=== PATIENT | male | born 1940 | race American Indian/Alaskan Native ===

== ENCOUNTER 2017-09-21 18:34 | Emergency (ER) | payer MEDICARE, MEDICAID ==
[~2017-09-21] VITALS: Ht 167.6 cm; Wt 66.8 kg
[~2017-09-21 18:34] MED LIST: AMIO200T57 PO; ASPI-1265 PO; ATOR10TA PO; CARV12.5 PO; CLOP75TA35 PO; FURO-150 PO; LISI-222 PO; POTA20TA19 PO
[2017-09-21 18:49] VITALS: BP 115/61
[2017-09-21] MEDS ORDERED: ALBU8.5H8 INH (21:24)
== END 2017-09-21 21:19 | disposition home or self-care (01) ==
LOC: ER 18:37
DX: R06.02 Shortness of breath (principal); R06.00 Dyspnea, unspecified; I48.91 Unspecified atrial fibrillation; I11.0 Hypertensive heart disease with heart failure; I50.9 Heart failure, unspecified; G89.29 Other chronic pain; F12.90 Cannabis use, unspecified, uncomplicated; Z76.0 Encounter for issue of repeat prescription; Z88.8 Allergy status to other drugs, medicaments and biological substances; Z91.018 Allergy to other foods; Z79.82 Long term (current) use of aspirin; Z79.899 Other long term (current) drug therapy
CPT/HCPCS: 99284

== ENCOUNTER 2018-04-29 06:22 | Day surgery (SDC) | payer MEDICARE, MEDICAID ==
[2018-04-22 16:35] LABS: CLARITY,URINE CLEAR (Clear); COLOR,URINE STRAW (Yellow); GLUCOSE, URINE NEGATIVE (Neg); KETONES,URINE NEGATIVE (Neg); LEUKOCYTE ESTERASE ,URINE TRACE (Neg); NITRITES, URINE NEGATIVE (Neg); OCCULT BLOOD,URINE NEGATIVE (Neg); PROTEIN,URINE NEGATIVE (Neg); UROBILINOGEN,URINE 0.2 E.U/dL (0.2-1.0)
[2018-04-22 16:41] LABS: BASOPHILS % (AUTO) 0.2 % (0-1); EOSINOPHILS # (AUTO) 0.2 X10'3 (0-0.9); EOSINOPHILS % (AUTO) 2.1 % (0-6); LYMPHOCYTES # (AUTO) 1.8 X10'3 (1.1-4.8); LYMPHOCYTES % (AUTO) 24.7 % (21-51); MEAN CORPUSCULAR HEMOGLOBIN 31.2 PG (27.0-31.0); MEAN CORPUSCULAR HGB CONC 33.3 g/dL (33.0-36.5); MEAN CORPUSCULAR VOLUME 93.9 FL (78-98); MEAN PLATELET VOLUME 8.8 FL (7.4-10.4); MONOCYTES # (AUTO) 0.6 X10'3 (0-0.9); MONOCYTES % (AUTO) 9.1 % (2-12); NEUTROPHILS # (AUTO) 4.5 X10'3 (1.8-7.7); NEUTROPHILS % (AUTO) 63.9 % (42-75); PRE OP HEMATOCRIT 44.4 % (42.0-52.0); PRE OP HEMOGLOBIN 14.8 g/dL (14.0-17.9); PRE OP PLATELET COUNT 147 X10'3 (140-440); RED BLOOD COUNT 4.73 X10'6 (4.70-6.10); RED CELL DISTRIBUTION WIDTH 14.7 % (11.5-14.5)
[2018-04-22 16:41] LABS: UA COLLECTION TYPE CLN CATCH MIDSTREAM
[2018-04-22 16:42] LABS: BACTERIA,URINE 1+ /HPF (Neg); MUCUS STRANDS FEW /LPF (Neg); RBC,URINE 0-2 /HPF (0-2); SQUAMOUS EPITHELIAL CELL,UR FEW /LPF (FEW); WBC,URINE 0-4 /HPF (0-4)
[2018-04-22 17:00] LABS: ALBUMIN/GLOBULIN RATIO 1.2 (1.1-1.5); ALKALINE PHOSPHATASE 44 IU/L (46-116); BLOOD UREA NITROGEN 25 MG/DL (7-18); BUN/CREATININE RATIO 18.7 (5.4-32.0); CALCIUM 9.6 MG/DL (8.5-10.1); CHLORIDE 104 MMOL/L (99-107); CREATININE 1.34 MG/DL (0.60-1.10); PRE OP ALT 21 U/L (30-65); PRE OP ANION GAP 9 (8-16); PRE OP AST 16 U/L (10-37); PRE OP GLUCOSE 93 MG/DL (70-104); PRE OP POTASSIUM 4.1 MMOL/L (3.4-5.1); PRE OP SODIUM 140 MMOL/L (135-145); TOTAL CARBON DIOXIDE 26.8 MMOL/L (24-32); TOTAL PROTEIN 7.4 G/DL (6.4-8.2); eGFR 52 ML/MIN
[2018-04-29] VITALS (16 sets, daily range): BP systolic 106–133; BP diastolic 60–87
[~2018-04-29] VITALS: Ht 170.2 cm; Wt 67.7 kg
[~2018-04-29 06:22] MED LIST changes: +ACET-812 PO; +ALOE JUICE PO; -AMIO200T57 PO; -ASPI-1265 PO; -ATOR10TA PO; +ATOR40TA PO; -CLOP75TA35 PO; +COU4T PO; +CYANOCOBALAMIN PO; +DOCUMENT DATE & TIME OF BETA-BLOCKER PO ONE; +IRON PO; +METHYLSULFONYLMETHANE PO; +[UNRECOGNIZED DRUG - OTHER] PO; +[UNRECOGNIZED DRUG - REMARK] PO; +cefazolin/dext.iso 2gm/50ml 50 ML IV ONE; +famotidine 20mg tablet PO ONE; +ringers solution, lacted 1,000 ML IV SCH
[2018-04-29] MEDS ORDERED: LORazepam 2 mg/ml vial ONE (06:47)
[2018-04-29] MEDS ORDERED: ceFAZolin 1000mg inj ONE (07:22)
[2018-04-29] MEDS ORDERED: BUPIVAcaine/PF 2.5mg/ml (0.25%) 10ml vial ONE (07:22)
[2018-04-29] MEDS ORDERED: LIDOcaine 1%/PF 5ML 10 MG/ML VIAL ONE (08:06)
[2018-04-29] MEDS ORDERED: sevoflurane 250ml liquid IH ONE (08:06)
[2018-04-29] MEDS ORDERED: fentaNYL/PF 50MCG/1 ML 2ML syringe ONE (08:11)
[2018-04-29] MEDS ORDERED: propofol inj 20 ML IV ONE (08:12)
[2018-04-29] MEDS ORDERED: rocuronium 10mg/ml inj IV ONE (08:12)
[2018-04-29 08:31] LABS: INR 1.3 INR; PRE OP PARTIAL THROMB. TIME 33 SECONDS (22-32); PROTHROMBIN TIME 13.3 SECONDS (9.0-12.0)
[2018-04-29] MEDS ORDERED: glycopyrrolate 0.2mg/ml inj ONE (08:44)
[2018-04-29] MEDS ORDERED: ringers solution, lacted 1,000 ML IV SCH (08:44)
[2018-04-29] MEDS ORDERED: neostigmine methylsulfate 1 MG/ML 10ml vial ONE (08:44)
[2018-04-29] MEDS ORDERED: meperidine/PF 25mg/ml syringe IV PRN ×3 (08:45)
[2018-04-29] MEDS ORDERED: ondansetron/PF 4mg/2ml inj IV PRN (08:45)
[2018-04-29] MEDS ORDERED: morphine 4 MG/ML inj SYRINge IV PRN ×2 (08:45)
[2018-04-29] MEDS ORDERED: proCHLORperazine 10 MG/2 ml inj IV PRN (08:45)
--- NOTE | 2018-04-29 08:56 | NUR ---
Received from OR via , accompanied by Anesthesiologist Dr. Evans and report given by Anesthesiolgist. Patient resting with eyes closes, vss as charted, 02 sat 100% on 10l mask, lung sounds clear, lap sites x3, abd soft to touch bandaides cdi, scd's in place, 20 gauge iv to left FA, IVF infusing, will contiune to monitor.
[2018-04-29] MEDS ORDERED: HYDROcodone/acetaminophen 5mg/325mg tablet PO ONE (09:40)
--- NOTE | 2018-04-29 11:55 | NUR ---
PATIENT DC CRITERIA MET. DISCHARGE INSTRUCTIONS GIVEN, PATIENT VERBALIZED UNDERSTANDING. PIV DC'D CATH TIP INTACT. PATIENT TO PERSONAL VEHCILE WITH ALL PERSONAL BELONGINGS ACCOMPANIED BY STAFF AND FAMILY.
== END 2018-04-29 11:58 | disposition home or self-care (01) ==
LOC: PAS 06:22
PROVIDERS: ATTEND Surgery
DX: K40.90 Unilateral inguinal hernia, without obstruction or gangrene, not specified as recurrent (principal); Z79.899 Other long term (current) drug therapy; Z72.89 Other problems related to lifestyle; Z98.890 Other specified postprocedural states; Z88.1 Allergy status to other antibiotic agents; Z88.8 Allergy status to other drugs, medicaments and biological substances; Z79.01 Long term (current) use of anticoagulants
CPT/HCPCS: 36415; 49650; 71046; 80053; 81001; 82948; 85025; 85610; 85730; 87077; 87088; 87186; 93005; A6258; C1781; J0690; J2001; J2060; J2175; J2405; J2704; J2710; J3010; J3490; A4315; C1727; J7120

== ENCOUNTER 2018-06-10 12:38 | Outpatient (CLI) | payer MEDICARE, MEDICAID ==
[~2018-06-10] VITALS: Ht 170.2 cm; Wt 64.9 kg
[~2018-06-10 12:38] MED LIST changes: -DOCUMENT DATE & TIME OF BETA-BLOCKER PO ONE; -cefazolin/dext.iso 2gm/50ml 50 ML IV ONE; -famotidine 20mg tablet PO ONE; -ringers solution, lacted 1,000 ML IV SCH
[2018-06-10] MEDS ORDERED: albuterol 2.5 MG/3 ML nebule NEB PRN (13:40)
== END 2018-06-10 23:59 | disposition home or self-care (01) ==
LOC: RT 12:38
PROVIDERS: ATTEND Specialist
DX: R94.2 Abnormal results of pulmonary function studies (principal); R06.02 Shortness of breath; F17.210 Nicotine dependence, cigarettes, uncomplicated; I11.0 Hypertensive heart disease with heart failure; I50.9 Heart failure, unspecified; Z79.01 Long term (current) use of anticoagulants; Z79.899 Other long term (current) drug therapy
CPT/HCPCS: 85018; 94060; 94727; 94729; 94760

== ENCOUNTER 2020-06-05 14:38 | Emergency (ER) | payer MEDICARE, MEDICAID ==
[~2020-06-05] VITALS: Ht 170.2 cm; Wt 70.0 kg
[2020-06-05] MEDS ORDERED: normal saline 1000ML IV soln IVB ONE (14:45)
[2020-06-05 15:17] LABS: BASOPHILS % (AUTO) 0.2 % (0-1); EOSINOPHILS # (AUTO) 0.1 X10'3 (0-0.9); EOSINOPHILS % (AUTO) 1.5 % (0-6); HEMATOCRIT 35.8 % (42.0-52.0); HEMOGLOBIN 11.7 g/dl (14.0-17.9); LYMPHOCYTES # (AUTO) 1.3 X10'3 (1.1-4.8); LYMPHOCYTES % (AUTO) 16.5 % (21-51); MEAN CORPUSCULAR HEMOGLOBIN 28.5 PG (27.0-31.0); MEAN CORPUSCULAR HGB CONC 32.6 g/dL (33.0-36.5); MEAN CORPUSCULAR VOLUME 87.6 FL (78-98); MEAN PLATELET VOLUME 9.2 FL (7.4-10.4); MONOCYTES # (AUTO) 0.7 X10'3 (0-0.9); MONOCYTES % (AUTO) 9.4 % (2-12); NEUTROPHILS # (AUTO) 5.5 X10'3 (1.8-7.7); NEUTROPHILS % (AUTO) 72.4 % (42-75); PLATELET COUNT 148 X10'3 (140-440); RED BLOOD COUNT 4.09 X10'6 (4.70-6.10); RED CELL DISTRIBUTION WIDTH 15.5 % (11.5-14.5); WHITE BLOOD COUNT 7.6 X10'3 (4.5-11.0)
[2020-06-05 15:36] LABS: ALANINE AMINOTRANSFERASE 15 U/L (12-78); ALBUMIN 3.5 G/DL (3.4-5.0); ALBUMIN/GLOBULIN RATIO 1.1 (1.1-1.5); ALKALINE PHOSPHATASE 39 IU/L (46-116); ANION GAP 9 (8-16); ASPARTATE AMINO TRANSFERASE 18 U/L (10-37); BILIRUBIN,TOTAL 0.5 MG/DL (0.1-1.0); BLOOD UREA NITROGEN 29 MG/DL (7-18); CALCIUM 9.2 MG/DL (8.5-10.1); CHLORIDE 108 MMOL/L (99-107); CREATININE 1.61 MG/DL (0.60-1.10); GLUCOSE 112 MG/DL (70-104); SODIUM 143 MMOL/L (135-145); TOTAL CARBON DIOXIDE 26.1 MMOL/L (24-32); TOTAL PROTEIN 6.7 G/DL (6.4-8.2); eGFR 42 ML/MIN
[2020-06-05 15:38] LABS: ETHANOL < 0.010 GM/DL (0.0-0.010); TROPONIN I 0.26 NG/ML (0.0-0.05)
[2020-06-05] MEDS ORDERED: aspirin 81mg tab.chew PO ONE (16:00)
--- NOTE | 2020-06-05 17:01 | NUR ---
ECHO AT BEDSIDE
[2020-06-05 18:46] VITALS: BP 135/77
== END 2020-06-05 19:19 | disposition home or self-care (01) ==
LOC: ER 14:39
DX: I48.20 Chronic atrial fibrillation, unspecified (principal); R55 Syncope and collapse; I11.0 Hypertensive heart disease with heart failure; I50.9 Heart failure, unspecified; G89.29 Other chronic pain; F12.90 Cannabis use, unspecified, uncomplicated; Z88.8 Allergy status to other drugs, medicaments and biological substances; Z91.018 Allergy to other foods; Z79.899 Other long term (current) drug therapy; Z79.01 Long term (current) use of anticoagulants
CPT/HCPCS: 36415; 70450; 71045; 80053; 80320; 83880; 84484; 85025; 85610; 93005; 93306; 96360; 96361; 99285; J7030

== ENCOUNTER 2021-03-29 21:09 | Inpatient (IN) | payer MEDICARE, MEDICAID ==
[~2021-03-29] VITALS: Ht 168.9 cm; Wt 73.6 kg
[~2021-03-29 21:09] MED LIST changes: +POTA-207 PO; -POTA20TA19 PO
--- NOTE | 2021-03-29 22:45 | NUR ---
pt had 10sec run of md pascual aware orders received
[2021-03-29 22:55] LABS: BASOPHILS % (AUTO) 0.1 % (0-1); EOSINOPHILS # (AUTO) 0.1 X10'3 (0-0.9); EOSINOPHILS % (AUTO) 0.6 % (0-6); HEMOGLOBIN 12.3 g/dl (14.0-17.9); LYMPHOCYTES # (AUTO) 0.9 X10'3 (1.1-4.8); LYMPHOCYTES % (AUTO) 8.4 % (21-51); MEAN CORPUSCULAR HGB CONC 32.4 g/dL (33.0-36.5); MEAN CORPUSCULAR VOLUME 86.4 FL (78-98); MEAN PLATELET VOLUME 8.5 FL (7.4-10.4); NEUTROPHILS # (AUTO) 8.8 X10'3 (1.8-7.7); NEUTROPHILS % (AUTO) 81.9 % (42-75); PLATELET COUNT 203 X10'3 (140-440); RED BLOOD COUNT 4.39 X10'6 (4.70-6.10); RED CELL DISTRIBUTION WIDTH 16.8 % (11.5-14.5); WHITE BLOOD COUNT 10.8 X10'3 (4.5-11.0)
[2021-03-29 23:06] LABS: APTT 37 SECONDS (22-32)
--- NOTE | 2021-03-29 23:07 | NUR ---
pt had 12 sec run of md pascual aware, pt gets dizzy, lightheaded denies chest pain
[2021-03-29 23:08] LABS: ALANINE AMINOTRANSFERASE 21 U/L (12-78); ALBUMIN 3.4 G/DL (3.4-5.0); ALKALINE PHOSPHATASE 41 IU/L (46-116); ANION GAP 9 (8-16); ASPARTATE AMINO TRANSFERASE 21 U/L (10-37); BILIRUBIN,TOTAL 0.9 MG/DL (0.1-1.0); BLOOD UREA NITROGEN 18 MG/DL (7-18); BUN/CREATININE RATIO 15.4 (5.4-32.0); CALCIUM 9.2 MG/DL (8.5-10.1); CHLORIDE 105 MMOL/L (99-107); CREATININE 1.17 MG/DL (0.60-1.10); GLUCOSE 123 MG/DL (70-104); POTASSIUM 4.4 MMOL/L (3.5-5.1); SODIUM 139 MMOL/L (135-145); TOTAL CARBON DIOXIDE 24.7 MMOL/L (24-32); TOTAL PROTEIN 6.8 G/DL (6.4-8.2); eGFR 60 ML/MIN
[2021-03-29] MEDS ORDERED: amiodarone 50MG/ML inj IV STA (23:19)
[2021-03-29] MEDS ORDERED: magnesium 2GM in 50ml NS 50 ML IV ONE (23:25)
[2021-03-29] MEDS ORDERED: aspirin 325mg tablet PO ONE (23:30)
[2021-03-29] MEDS ORDERED: amiodarone 150mg/dext, iso-os 100 ML IV ONE (23:30)
--- NOTE | 2021-03-29 23:52 | NUR ---
pt had 22 sec run of MD pascual aware. sypmtoms similar to previous episode
--- NOTE | 2021-03-29 23:56 | NUR ---
13 sec run of md pascual aware, continuing w/ current orders, patient placed on zoll for additional monitoring
--- NOTE | 2021-03-29 23:58 | NUR ---
32 second run of vtach, patient symptomatic, md at bedside
[2021-03-30] VITALS (17 sets, daily range): BP systolic 95–142; BP diastolic 52–99
[2021-03-30] MEDS ORDERED: iohexol 350MG/ML 100ml bottle IV ONE (00:03)
--- NOTE | 2021-03-30 00:07 | NUR ---
11 sec run of md pascual aware
--- NOTE | 2021-03-30 00:17 | NUR ---
20 second run of md pascual aware
[2021-03-30] MEDS: amiodarone/D5 360MG/200ML BAG 200 ML IV SCH ×3 (00:40→17:18)
--- NOTE | 2021-03-30 00:51 | NUR ---
44 sec run of md pascual aware at bedside continuing w/ current orders
[2021-03-30 01:48] LABS: MAGNESIUM 2.8 MG/DL (1.5-2.4)
--- NOTE | 2021-03-30 02:28 | NUR ---
20 sec run of pascual waters aware
[2021-03-30] MEDS ORDERED: magnesium 2GM in 50ml NS 50 ML IV ONE (02:50)
[2021-03-30] MEDS ORDERED: acetaminophen 325mg tablet PO PRN (03:25)
[2021-03-30] MEDS ORDERED: potassium Cl 20 mEq SR tablet PO PRN ×2 (03:25)
[2021-03-30] MEDS ORDERED: magnesium hydroxide 30ml (MOM) UD suspension PO PRN (03:25)
[2021-03-30] MEDS ORDERED: CALCIUM GLUC 1gm/50ml NACL,iso 50 ML IV ONE (03:45)
[2021-03-30] MEDS ORDERED: amiodarone/D5 360MG/200ML BAG 200 ML IV SCH (06:50)
[2021-03-30] MEDS ORDERED: carVEDilol 12.5mg tablet PO SCH (08:00)
[2021-03-30] MEDS: K and/or MAG REPLACEMENT MC SCH (08:00)
[2021-03-30] MEDS: carVEDilol 12.5mg tablet PO SCH ×2 (08:13→20:20)
[2021-03-30] MEDS: aspirin 81mg, enteric-coated 1 TAB TABLET.DR PO SCH (08:13)
[2021-03-30] MEDS: pantoprazole 40mg Tablet.DR PO SCH (08:14)
[2021-03-30] MEDS ORDERED: diltiazem-NS 100mg/100ml 100 ML IV SCH (08:55)
[2021-03-30] MEDS: HYDROmorphone 1 mg/ml syringe IV PRN ×2 (09:12→14:51)
--- NOTE | 2021-03-30 09:57 | NUR ---
Transfer up to ICU 0740: Patient arrives to ICU. Report received from DIANELYS Reyes. Patient arrives w/o Amio running and has an incontinent stool episode. Patient is alert and oriented x4, but appears and speaks weakly. Patient arrives in a v-paced rhythm at 70 BMP. [id number]: Patient has three episodes of v-tach. ICD does not fire/pace immediately. These episodes have been occurring all night in ER and I'm told Wayne was consulted/is aware. However, patient is symptomatic and is incontinent of stool each episode. 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 0900: Hospitalist, Dr. Medrano rounds and is updated on v-tach episodes and patient right, rib pain. He orders Cardizem and Dilaudid and asks that I call Wayne's MOTOR VEHICLE OR CARAVAN SALESPERSON, Janett. I leave a voicemail at her extension. 0910: Patient's SO, Faye, calls for an update and provides some additional medical information. She will bring his report device for [employer] and voices that she thinks his device has not been working well. 0930: Patient has a soft BP after Dilaudid. Patient rebounds nicely. 0945: plant tech is bedside, shares ER of 10-15%, large pericardial effusion with no evidence of tamponade at this time.
--- NOTE | 2021-03-30 10:22 | NUR ---
Morning Rounds: Interdisciplinary rounds occur. Dr. Medrano has spoken with Wayne and we will stop the Cardizen and should the patient have another run of V-tach, we are to start a lidocaine gtts. Pharmacist will dose. Patient will remain NPO with sips/chips at this time due to unforeseen/expected interventions/procedures that may occur today. We discuss the rectal tube and Dr. Marcela Mcneill use of FMS.
[2021-03-30] MEDS ORDERED: FURO40TA4 PO (10:31)
[2021-03-30] MEDS ORDERED: WARF-65 PO (10:31)
[2021-03-30] MEDS ORDERED: ATOR10TA70 PO (10:31)
[2021-03-30] MEDS ORDERED: CARV6.253 PO (10:31)
[2021-03-30] MEDS: chloestyramine/aspartame 4gm packet PO SCH (11:00)
--- NOTE | 2021-03-30 15:59 | NUR ---
Marcela updated is on unit and is updated on status of patient. We have still not had to add lidocaine. Patient has had no urinary output. BPs are stable, K+ within range. I am granted one time order of lasix given PO dose won't start until tomorrow.
[2021-03-30] MEDS ORDERED: furosemide 20 MG/2 ML vial IV ONE (17:00)
--- NOTE | 2021-03-30 18:12 | NUR ---
End of Shift Patient has not had further v-tach runs since this morning. Patient received some lasix due to no urinary output. He has received two doses of 1mg Dilaudid today for right, rib pain with desired relief. Patient now has rectal tube after 5 liquid, incontinent stools. Update, plans, and case reviewed with oncoming PM RN.
[2021-03-30] MEDS: atorvastatin 10mg tablet PO SCH (20:19)
[2021-03-30] MEDS ORDERED: warfarin 1mg tablet PO SCH (21:00)
[2021-03-30] MEDS ORDERED: warfarin 4mg tablet PO ONE (21:00)
[2021-03-30] MEDS: LIDOcaine 2 gm/250ml D5W 250 ML IV SCH (21:13)
--- NOTE | 2021-03-30 22:00 | NUR ---
At beginning of shift, pt was noted to be running beats of v. tach. PER previous shift nurse, if patient continued to run arrythmias, pt was to be started on Lidocaine, to be dosed by pharmacy. Hospitalist Dr. Nunez was called and informed of Automotive Upholsterer recommendation. He stated to start the Lidocaine drip, but discontinue the Amiodarone drip. All interventions carried per Dr. Nunez's orders. Nader Malin RN
[2021-03-31] VITALS (26 sets, daily range): BP systolic 115–150; BP diastolic 55–84
[2021-03-31 03:48] LABS: ALBUMIN 2.7 G/DL (3.4-5.0); ANION GAP 10 (8-16); BLOOD UREA NITROGEN 17 MG/DL (7-18); BUN/CREATININE RATIO 14.2 (5.4-32.0); CHLORIDE 104 MMOL/L (99-107); GLUCOSE 102 MG/DL (70-104); MAGNESIUM 2.4 MG/DL (1.5-2.4); POTASSIUM 4.1 MMOL/L (3.5-5.1); SODIUM 137 MMOL/L (135-145); TOTAL CARBON DIOXIDE 23.5 MMOL/L (24-32); eGFR 59 ML/MIN
[2021-03-31 03:50] LABS: BASOPHILS % (AUTO) 0.1 % (0-1); EOSINOPHILS % (AUTO) 0.6 % (0-6); HEMATOCRIT 35.6 % (42.0-52.0); HEMOGLOBIN 11.8 g/dl (14.0-17.9); LYMPHOCYTES # (AUTO) 0.8 X10'3 (1.1-4.8); LYMPHOCYTES % (AUTO) 10.6 % (21-51); MEAN CORPUSCULAR HEMOGLOBIN 28.1 PG (27.0-31.0); MEAN CORPUSCULAR VOLUME 85.1 FL (78-98); MEAN PLATELET VOLUME 8.7 FL (7.4-10.4); MONOCYTES # (AUTO) 0.8 X10'3 (0-0.9); MONOCYTES % (AUTO) 10.7 % (2-12); NEUTROPHILS # (AUTO) 5.6 X10'3 (1.8-7.7); PLATELET COUNT 169 X10'3 (140-440); RED BLOOD COUNT 4.19 X10'6 (4.70-6.10); RED CELL DISTRIBUTION WIDTH 16.4 % (11.5-14.5); WHITE BLOOD COUNT 7.2 X10'3 (4.5-11.0)
[2021-03-31] MEDS: K and/or MAG REPLACEMENT MC SCH (08:00)
[2021-03-31] MEDS: carVEDilol 12.5mg tablet PO SCH ×2 (08:00→20:02)
[2021-03-31] MEDS: aspirin 81mg, enteric-coated 1 TAB TABLET.DR PO SCH (08:12)
[2021-03-31] MEDS: pantoprazole 40mg Tablet.DR PO SCH (08:13)
[2021-03-31] MEDS: furosemide 40mg tablet PO SCH (08:13)
--- NOTE | 2021-03-31 08:30 | NUR ---
Ok to hold coreg d/t low HR. Monitor shows 35, manual radial was 54.
[2021-03-31] MEDS: chloestyramine/aspartame 4gm packet PO SCH (11:23)
[2021-03-31] MEDS ORDERED: amiodarone 150mg/dext, iso-os 100 ML IV ONE (14:10)
--- NOTE | 2021-03-31 14:12 | NUR ---
Per MD Fox. Amio gtt in conjunction with lidocaine gtt. Wean off lidocaine gtt.
[2021-03-31] MEDS: amiodarone/D5 360MG/200ML BAG 200 ML IV SCH ×2 (14:36→20:32)
[2021-03-31] MEDS: HYDROmorphone 1 mg/ml syringe IV PRN (15:45)
--- NOTE | 2021-03-31 17:55 | NUR ---
Pt has been able to make his needs known. Amiodarone gtt was started at 1418. Lidocaine drip was turned off at 1642. No runs of VTach on day shift. Pt has c/o pain 2/10 for most of the day but needed a pain med when the pain was worse after turning. PRN dilaudid administered x 1 with positive results. Will continue to monitor.
--- NOTE | 2021-03-31 18:16 | NUR ---
Problems reprioritized. Patient report given, questions answered & plan of care reviewed with DIANELYS Dwyer.
[2021-03-31] MEDS: atorvastatin 10mg tablet PO SCH (20:02)
[2021-04-01] VITALS (28 sets, daily range): BP systolic 96–162; BP diastolic 58–90
[2021-04-01 03:23] LABS: BASOPHILS % (AUTO) 0 % (0-1); EOSINOPHILS % (AUTO) 0.3 % (0-6); HEMOGLOBIN 11.8 g/dl (14.0-17.9); LYMPHOCYTES % (AUTO) 10.3 % (21-51); MEAN CORPUSCULAR HEMOGLOBIN 27.7 PG (27.0-31.0); MEAN CORPUSCULAR HGB CONC 32.7 g/dL (33.0-36.5); MEAN CORPUSCULAR VOLUME 84.6 FL (78-98); MEAN PLATELET VOLUME 8.9 FL (7.4-10.4); MONOCYTES # (AUTO) 1.1 X10'3 (0-0.9); NEUTROPHILS # (AUTO) 7.7 X10'3 (1.8-7.7); NEUTROPHILS % (AUTO) 78.4 % (42-75); PLATELET COUNT 187 X10'3 (140-440); RED BLOOD COUNT 4.25 X10'6 (4.70-6.10); RED CELL DISTRIBUTION WIDTH 16.6 % (11.5-14.5); WHITE BLOOD COUNT 9.9 X10'3 (4.5-11.0)
[2021-04-01 03:42] LABS: ALBUMIN 2.8 G/DL (3.4-5.0); ANION GAP 13 (8-16); BLOOD UREA NITROGEN 22 MG/DL (7-18); BUN/CREATININE RATIO 17.7 (5.4-32.0); CALCIUM 8.9 MG/DL (8.5-10.1); CHLORIDE 102 MMOL/L (99-107); CREATININE 1.24 MG/DL (0.60-1.10); GLUCOSE 107 MG/DL (70-104); MAGNESIUM 2.2 MG/DL (1.5-2.4); POTASSIUM 3.9 MMOL/L (3.5-5.1); SODIUM 136 MMOL/L (135-145); eGFR 56 ML/MIN
--- NOTE | 2021-04-01 04:58 | NUR ---
Pt INR is 5.4 and pt also has dark red stool indicative of a GI Bleed. Occult stool has been collected and results are pending. Dr. Khan was updated with concerns and critical lab work during rounds. He will update his plan of care accordingly. At this time, vital signs are currently stable. Nader Malin RN
--- NOTE | 2021-04-01 05:06 | NUR ---
rectal tube removed. 40cc removed and balloon deflated. Nader Malin RN
[2021-04-01 05:23] LABS: OCCULT BLOOD STOOL POSITIVE (Neg)
--- NOTE | 2021-04-01 06:35 | NUR ---
Patient in room ICU 2039. I have received report from DIANELYS HALLMAN, and had the opportunity to ask questions and assume patient care.
[2021-04-01] MEDS: pantoprazole 40mg Tablet.DR PO SCH ×2 (07:30→07:57)
[2021-04-01] MEDS: LIDOcaine 2 gm/250ml D5W 250 ML IV SCH (07:56)
[2021-04-01] MEDS: furosemide 40mg tablet PO SCH ×2 (07:56→10:45)
[2021-04-01] MEDS: multivitamins, therapeutics tablet PO SCH ×2 (07:56→10:45)
[2021-04-01] MEDS: aspirin 81mg, enteric-coated 1 TAB TABLET.DR PO SCH ×2 (07:57→10:46)
[2021-04-01] MEDS: carVEDilol 12.5mg tablet PO SCH ×3 (07:57→20:00)
[2021-04-01] MEDS: cholecalciferol (vitamin D3) 1,000 unit (25mcg) tablet PO SCH ×2 (07:57→10:46)
[2021-04-01] MEDS: K and/or MAG REPLACEMENT MC SCH (08:00)
[2021-04-01] MEDS: amiodarone/D5 360MG/200ML BAG 200 ML IV SCH ×2 (08:43→19:26)
[2021-04-01] MEDS: chloestyramine/aspartame 4gm packet PO SCH (12:32)
[2021-04-01] MEDS: acetaminophen 325mg tablet PO PRN (15:18)
--- NOTE | 2021-04-01 15:51 | NUR ---
PT WAS RELUCTANT TO TAKE AM MEDS. PT WAS SHOWN AND EDUCATED ON MEDICATIONS. PT REFUSED TO TAKE MEDS UNTIL HIS SIGNIFICANT OTHER (SO) ARRIVED. THE MEDICATIONS WERE RETRIEVED FROM THE INNOBIICELL AND THE PT AND SO WERE SHOWN AND EDUCATED ON THE MEDS. THIS HAPPENED 2 MORE TIMES WHEN THEY FINALLY AGREED TO ALL BUT THE PROTONIX.
--- NOTE | 2021-04-01 18:11 | NUR ---
Problems reprioritized. Patient report given, questions answered & plan of care reviewed with DIANELYS HALLMAN. Addendum: 04/01/21 at 1825 by Soledad Sethi RN Problems reprioritized. Patient report given, questions answered & plan of care reviewed with DIANELYS ONTIVEROS.
[2021-04-01 19:30] LABS: BASOPHILS % (AUTO) 0.1 % (0-1); EOSINOPHILS % (AUTO) 0.4 % (0-6); HEMATOCRIT 37.5 % (42.0-52.0); HEMOGLOBIN 12.3 g/dl (14.0-17.9); LYMPHOCYTES # (AUTO) 0.9 X10'3 (1.1-4.8); LYMPHOCYTES % (AUTO) 10.2 % (21-51); MEAN CORPUSCULAR HEMOGLOBIN 27.8 PG (27.0-31.0); MEAN CORPUSCULAR HGB CONC 32.9 g/dL (33.0-36.5); MEAN CORPUSCULAR VOLUME 84.4 FL (78-98); MEAN PLATELET VOLUME 8.7 FL (7.4-10.4); MONOCYTES # (AUTO) 0.9 X10'3 (0-0.9); MONOCYTES % (AUTO) 9.6 % (2-12); NEUTROPHILS # (AUTO) 7.3 X10'3 (1.8-7.7); NEUTROPHILS % (AUTO) 79.7 % (42-75); PLATELET COUNT 206 X10'3 (140-440); RED BLOOD COUNT 4.44 X10'6 (4.70-6.10); RED CELL DISTRIBUTION WIDTH 16.5 % (11.5-14.5); WHITE BLOOD COUNT 9.1 X10'3 (4.5-11.0)
[2021-04-01 19:42] LABS: ALANINE AMINOTRANSFERASE 15 U/L (12-78); ALBUMIN 2.8 G/DL (3.4-5.0); ALKALINE PHOSPHATASE 41 IU/L (46-116); ANION GAP 8 (8-16); ASPARTATE AMINO TRANSFERASE 15 U/L (10-37); BILIRUBIN,TOTAL 0.6 MG/DL (0.1-1.0); BLOOD UREA NITROGEN 20 MG/DL (7-18); BUN/CREATININE RATIO 14.7 (5.4-32.0); CALCIUM 8.9 MG/DL (8.5-10.1); CHLORIDE 101 MMOL/L (99-107); CREATININE 1.36 MG/DL (0.60-1.10); GLUCOSE 162 MG/DL (70-104); MAGNESIUM 1.9 MG/DL (1.5-2.4); POTASSIUM 3.4 MMOL/L (3.5-5.1); SODIUM 132 MMOL/L (135-145); TOTAL CARBON DIOXIDE 22.6 MMOL/L (24-32); TOTAL PROTEIN 5.5 G/DL (6.4-8.2); eGFR 51 ML/MIN
[2021-04-01 19:45] LABS: APTT 51 SECONDS (22-32)
[2021-04-01] MEDS: atorvastatin 10mg tablet PO SCH (20:05)
[2021-04-01] MEDS ORDERED: phytonadione inj. 10 MG in normal saline 100ml IV soln 100 ML IV ONE (20:50)
[2021-04-01] MEDS ORDERED: magnesium 2GM in 50ml NS 50 ML IV ONE (20:55)
[2021-04-02] VITALS (24 sets, daily range): BP systolic 108–157; BP diastolic 62–95
[2021-04-02] MEDS: amiodarone/D5 360MG/200ML BAG 200 ML IV SCH ×3 (02:53→18:53)
[2021-04-02 06:09] LABS: BASOPHILS % (AUTO) 0.1 % (0-1); EOSINOPHILS # (AUTO) 0.1 X10'3 (0-0.9); EOSINOPHILS % (AUTO) 0.9 % (0-6); HEMATOCRIT 37.4 % (42.0-52.0); HEMOGLOBIN 12.2 g/dl (14.0-17.9); LYMPHOCYTES % (AUTO) 12.8 % (21-51); MEAN CORPUSCULAR HEMOGLOBIN 27.8 PG (27.0-31.0); MEAN CORPUSCULAR HGB CONC 32.7 g/dL (33.0-36.5); MEAN PLATELET VOLUME 8.9 FL (7.4-10.4); MONOCYTES # (AUTO) 0.9 X10'3 (0-0.9); MONOCYTES % (AUTO) 10.8 % (2-12); NEUTROPHILS # (AUTO) 6.1 X10'3 (1.8-7.7); NEUTROPHILS % (AUTO) 75.4 % (42-75); PLATELET COUNT 192 X10'3 (140-440); RED BLOOD COUNT 4.39 X10'6 (4.70-6.10); RED CELL DISTRIBUTION WIDTH 16.5 % (11.5-14.5); WHITE BLOOD COUNT 8.1 X10'3 (4.5-11.0)
[2021-04-02 06:31] LABS: ALBUMIN 2.7 G/DL (3.4-5.0); ANION GAP 9 (8-16); BLOOD UREA NITROGEN 18 MG/DL (7-18); BUN/CREATININE RATIO 16.7 (5.4-32.0); CALCIUM 8.7 MG/DL (8.5-10.1); CHLORIDE 102 MMOL/L (99-107); CREATININE 1.08 MG/DL (0.60-1.10); GLUCOSE 115 MG/DL (70-104); MAGNESIUM 2.5 MG/DL (1.5-2.4); POTASSIUM 3.9 MMOL/L (3.5-5.1); SODIUM 135 MMOL/L (135-145); TOTAL CARBON DIOXIDE 24.1 MMOL/L (24-32); eGFR 66 ML/MIN
[2021-04-02] MEDS: multivitamins, therapeutics tablet PO SCH (08:12)
[2021-04-02] MEDS: cholecalciferol (vitamin D3) 1,000 unit (25mcg) tablet PO SCH (08:12)
[2021-04-02] MEDS: carVEDilol 12.5mg tablet PO SCH ×2 (08:12→21:42)
[2021-04-02] MEDS: pantoprazole 40mg Tablet.DR PO SCH (08:12)
[2021-04-02] MEDS: aspirin 81mg, enteric-coated 1 TAB TABLET.DR PO SCH (08:12)
[2021-04-02] MEDS: furosemide 40mg tablet PO SCH (08:12)
[2021-04-02] MEDS ORDERED: amiodarone 200mg tablet PO SCH (10:49)
[2021-04-02] MEDS: chloestyramine/aspartame 4gm packet PO SCH (11:04)
[2021-04-02] MEDS: LIDOcaine 2 gm/250ml D5W 250 ML IV SCH (14:54)
[2021-04-02] MEDS: acetaminophen 325mg tablet PO PRN (16:15)
[2021-04-02] MEDS ORDERED: warfarin 1mg tablet PO ONE (21:00)
[2021-04-02] MEDS: atorvastatin 10mg tablet PO SCH (21:41)
[2021-04-02] MEDS: amiodarone 200mg tablet PO SCH (21:41)
[2021-04-03] VITALS (28 sets, daily range): BP systolic 92–162; BP diastolic 44–89
[2021-04-03 06:03] LABS: BASOPHILS % (AUTO) 0.1 % (0-1); EOSINOPHILS % (AUTO) 0.3 % (0-6); HEMATOCRIT 35.1 % (42.0-52.0); HEMOGLOBIN 11.6 g/dl (14.0-17.9); LYMPHOCYTES # (AUTO) 0.7 X10'3 (1.1-4.8); MEAN CORPUSCULAR HEMOGLOBIN 27.8 PG (27.0-31.0); MEAN CORPUSCULAR HGB CONC 33.1 g/dL (33.0-36.5); MEAN PLATELET VOLUME 8.8 FL (7.4-10.4); MONOCYTES # (AUTO) 0.7 X10'3 (0-0.9); MONOCYTES % (AUTO) 9.5 % (2-12); NEUTROPHILS # (AUTO) 5.6 X10'3 (1.8-7.7); NEUTROPHILS % (AUTO) 80.1 % (42-75); PLATELET COUNT 212 X10'3 (140-440); RED BLOOD COUNT 4.18 X10'6 (4.70-6.10)
[2021-04-03 06:15] LABS: ALBUMIN 2.6 G/DL (3.4-5.0); ANION GAP 7 (8-16); BLOOD UREA NITROGEN 20 MG/DL (7-18); BUN/CREATININE RATIO 17.1 (5.4-32.0); CALCIUM 8.6 MG/DL (8.5-10.1); CHLORIDE 103 MMOL/L (99-107); CREATININE 1.17 MG/DL (0.60-1.10); GLUCOSE 113 MG/DL (70-104); MAGNESIUM 2.1 MG/DL (1.5-2.4); POTASSIUM 3.7 MMOL/L (3.5-5.1); SODIUM 134 MMOL/L (135-145); TOTAL CARBON DIOXIDE 24.5 MMOL/L (24-32); eGFR 60 ML/MIN
[2021-04-03] MEDS ORDERED: amiodarone/D5 360MG/200ML BAG 200 ML IV ONE (07:13)
[2021-04-03] MEDS: pantoprazole 40mg Tablet.DR PO SCH (07:44)
[2021-04-03] MEDS: cholecalciferol (vitamin D3) 1,000 unit (25mcg) tablet PO SCH (07:44)
[2021-04-03] MEDS: multivitamins, therapeutics tablet PO SCH (07:44)
[2021-04-03] MEDS: carVEDilol 12.5mg tablet PO SCH ×2 (07:44→20:00)
[2021-04-03] MEDS: furosemide 40mg tablet PO SCH (07:44)
[2021-04-03] MEDS: amiodarone/D5 360MG/200ML BAG 200 ML IV SCH (07:44)
[2021-04-03] MEDS: aspirin 81mg, enteric-coated 1 TAB TABLET.DR PO SCH (07:44)
[2021-04-03] MEDS: amiodarone 200mg tablet PO SCH (08:59)
[2021-04-03] MEDS ORDERED: amiodarone/D5 360MG/200ML BAG 200 ML IV SCH (10:25)
[2021-04-03] MEDS ORDERED: PROCAINAMIDE IV ONE ×2 (10:30→11:20)
[2021-04-03] MEDS ORDERED: NORMAL SALINE IV ONE (10:30)
[2021-04-03] MEDS: chloestyramine/aspartame 4gm packet PO SCH (11:00)
[2021-04-03] MEDS ORDERED: WATER IV ONE (11:20)
[2021-04-03] MEDS ORDERED: DEXTROSE 5% IV ONE (11:20)
[2021-04-03] MEDS ORDERED: PROCAINAMIDE IV SCH ×3 (12:18→16:00)
[2021-04-03] MEDS ORDERED: WATER IV SCH (12:18)
[2021-04-03] MEDS ORDERED: DEXTROSE 5% IV SCH (12:18)
--- NOTE | 2021-04-03 13:07 | NUR ---
Procainamide rate/doseage verified and reverified with Cardiology GAS OPERATION MANAGER at bedside. Will infuse procainamide at 1mg/HR which is 0.125 mls/hr.
[2021-04-03] MEDS ORDERED: D5W IV SCH (16:00)
[2021-04-03] MEDS ORDERED: NORMAL SALINE IV SCH (16:00)
[2021-04-03] MEDS ORDERED: verapamil 2.5 mg/ml inj IV ONE (16:03)
[2021-04-03] MEDS ORDERED: midazolam 1 mg/ML 2ml injection ONE (16:03)
[2021-04-03] MEDS ORDERED: nitroGLYCERIN-Tridil 50MG/D5W 250 ML IV ONE (16:04)
[2021-04-03] MEDS ORDERED: heparin 1,000 UNITS/NS 500ml 500 ML ONE ×2 (16:04)
[2021-04-03] MEDS ORDERED: LIDOcaine 1% (10mg/ml)w/preservative injection 20ml MDV ONE (16:04)
[2021-04-03] MEDS ORDERED: iohexol 350MG/ML 100ml bottle IV ONE (16:04)
[2021-04-03] MEDS ORDERED: fentaNYL/PF 50MCG/1 ML 2ML syringe ONE (16:04)
[2021-04-03] MEDS ORDERED: heparin 1,000unit/ml 10ml vial 10 ML ONE (16:04)
[2021-04-03] MEDS: enoxaparin 40mg/0.4ml syringe SQ SCH (20:00)
[2021-04-03] MEDS: enoxaparin 30mg/0.3ml syringe SUBCUT SCH (20:00)
[2021-04-03] MEDS: atorvastatin 10mg tablet PO SCH (21:00)
[2021-04-03] MEDS ORDERED: warfarin 1mg tablet PO ONE (21:00)
[2021-04-04] VITALS (18 sets, daily range): BP systolic 76–142; BP diastolic 44–74
--- NOTE | 2021-04-04 00:46 | NUR ---
Patient returned from labor conciliator at 2100 hrs. Received bedside report from OR nurse. Patient is aox4 and has vascband with 10cc of air. 2 cc due to be released at 2145 hrs and 2cc thereafter until entire 10cc is released. Per OR nurse hold Lovenox and Warfarin, pt received Heparin in the OR.
[2021-04-04] MEDS: HYDROmorphone 1 mg/ml syringe IV PRN (01:29)
[2021-04-04 05:35] LABS: BASOPHILS % (AUTO) 0.1 % (0-1); EOSINOPHILS % (AUTO) 0.5 % (0-6); HEMATOCRIT 36.1 % (42.0-52.0); HEMOGLOBIN 11.8 g/dl (14.0-17.9); LYMPHOCYTES # (AUTO) 1.1 X10'3 (1.1-4.8); LYMPHOCYTES % (AUTO) 12.1 % (21-51); MEAN CORPUSCULAR HEMOGLOBIN 27.3 PG (27.0-31.0); MEAN CORPUSCULAR HGB CONC 32.7 g/dL (33.0-36.5); MEAN CORPUSCULAR VOLUME 83.3 FL (78-98); MEAN PLATELET VOLUME 8.4 FL (7.4-10.4); MONOCYTES # (AUTO) 0.8 X10'3 (0-0.9); MONOCYTES % (AUTO) 9.6 % (2-12); NEUTROPHILS # (AUTO) 6.8 X10'3 (1.8-7.7); NEUTROPHILS % (AUTO) 77.7 % (42-75); PLATELET COUNT 220 X10'3 (140-440); RED BLOOD COUNT 4.33 X10'6 (4.70-6.10); RED CELL DISTRIBUTION WIDTH 16.3 % (11.5-14.5); WHITE BLOOD COUNT 8.8 X10'3 (4.5-11.0)
[2021-04-04 05:55] LABS: ALBUMIN 2.7 G/DL (3.4-5.0); ANION GAP 8 (8-16); BLOOD UREA NITROGEN 19 MG/DL (7-18); CALCIUM 8.8 MG/DL (8.5-10.1); CHLORIDE 102 MMOL/L (99-107); CREATININE 1.27 MG/DL (0.60-1.10); GLUCOSE 87 MG/DL (70-104); MAGNESIUM 1.9 MG/DL (1.5-2.4); POTASSIUM 3.8 MMOL/L (3.5-5.1); SODIUM 134 MMOL/L (135-145); TOTAL CARBON DIOXIDE 24.5 MMOL/L (24-32); eGFR 55 ML/MIN
--- NOTE | 2021-04-04 06:13 | NUR ---
Problems reprioritized. Patient report given, questions answered & plan of care reviewed with DIANELYS Rowe.
--- NOTE | 2021-04-04 07:02 | NUR ---
Patient in room ICU 2039. I have received report from DIANELYS SIERRA, and had the opportunity to ask questions and assume patient care.
[2021-04-04] MEDS: cholecalciferol (vitamin D3) 1,000 unit (25mcg) tablet PO SCH (07:39)
[2021-04-04] MEDS: pantoprazole 40mg Tablet.DR PO SCH (07:39)
[2021-04-04] MEDS: carVEDilol 12.5mg tablet PO SCH (07:39)
[2021-04-04] MEDS: furosemide 40mg tablet PO SCH (07:39)
[2021-04-04] MEDS: multivitamins, therapeutics tablet PO SCH (07:39)
[2021-04-04] MEDS: aspirin 81mg, enteric-coated 1 TAB TABLET.DR PO SCH (07:39)
[2021-04-04] MEDS: enoxaparin 40mg/0.4ml syringe SQ SCH (07:40)
[2021-04-04] MEDS: enoxaparin 30mg/0.3ml syringe SUBCUT SCH (07:41)
[2021-04-04] MEDS ORDERED: PROCAINAMIDE IV SCH ×2 (09:35→16:00)
[2021-04-04] MEDS ORDERED: NORMAL SALINE IV SCH (09:35)
[2021-04-04] MEDS: chloestyramine/aspartame 4gm packet PO SCH (10:58)
[2021-04-04] MEDS: LIDOcaine 2 gm/250ml D5W 250 ML IV SCH (15:30)
[2021-04-04] MEDS ORDERED: DEXTROSE 5% IV SCH (16:00)
[2021-04-04] MEDS ORDERED: WATER IV SCH (16:00)
--- NOTE | 2021-04-04 17:02 | NUR ---
PT STABLE FOR TRANSFER PER MD. PT TRANSPORTED BY REACH HELICOPTER TO [facility] IN [place]. PT TRANSFERRING FOR EP STUDIES. HAND OFF GIVEN TO DIANELYS POLLARD, AT [facility]. PT ACCOMPANIED BY DIANELYS CASTELLANO AND ABHILASH LOMELI.
[2021-04-04] MEDS ORDERED: warfarin 1mg tablet PO ONE (21:00)
== END 2021-04-04 17:27 | disposition critical access hospital (66) | DRG 286 ==
LOC: ER 21:10 → ED HOLD 03-30 03:32 → ICU 2S 03-30 07:46
PROVIDERS: ADMIT Internal Medicine Critical Care Medicine; ATTEND Internal Medicine Critical Care Medicine
PROC: 4B02XTZ Measurement of Cardiac Defibrillator, External Approach (ICD-10-PCS; 2021-03-30)
PROC: BW251ZZ Computerized Tomography (CT Scan) of Chest, Abdomen and Pelvis using Low Osmolar Contrast (ICD-10-PCS; 2021-03-30)
PROC: 4A023N7 Measurement of Cardiac Sampling and Pressure, Left Heart, Percutaneous Approach (ICD-10-PCS; principal; 2021-04-03)
PROC: B2111ZZ Fluoroscopy of Multiple Coronary Arteries using Low Osmolar Contrast (ICD-10-PCS; 2021-04-03)
DX: I47.2 Ventricular tachycardia (principal); I50.23 Acute on chronic systolic (congestive) heart failure; I13.0 Hypertensive heart and chronic kidney disease with heart failure and stage 1 through stage 4 chronic kidney disease, or unspecified chronic kidney disease; N17.9 Acute kidney failure, unspecified; I31.3 Pericardial effusion (noninflammatory); I42.0 Dilated cardiomyopathy; Z20.822 Contact with and (suspected) exposure to COVID-19; I71.4 Abdominal aortic aneurysm, without rupture; E78.00 Pure hypercholesterolemia, unspecified; F12.90 Cannabis use, unspecified, uncomplicated; G89.29 Other chronic pain; I95.9 Hypotension, unspecified; R00.1 Bradycardia, unspecified; K62.89 Other specified diseases of anus and rectum; N18.31 Chronic kidney disease, stage 3a; R15.9 Full incontinence of feces; R55 Syncope and collapse; E78.5 Hyperlipidemia, unspecified; I25.10 Atherosclerotic heart disease of native coronary artery without angina pectoris; I48.91 Unspecified atrial fibrillation; J44.9 Chronic obstructive pulmonary disease, unspecified; K52.9 Noninfective gastroenteritis and colitis, unspecified; Z79.01 Long term (current) use of anticoagulants; Z85.038 Personal history of other malignant neoplasm of large intestine; Z95.810 Presence of automatic (implantable) cardiac defibrillator; Z88.8 Allergy status to other drugs, medicaments and biological substances; Z79.899 Other long term (current) drug therapy; Z87.01 Personal history of pneumonia (recurrent); Z95.5 Presence of coronary angioplasty implant and graft
CPT/HCPCS: 36415; 70450; 71045; 71260; 74177; 80048; 80053; 80176; 82272; 82948; 83735; 83880; 84100; 84443; 84484; 85025; 85610; 85730; 87635; 93005; 93306; 93454; 97116; 97161; 97530; 99152; 99153; 99285; A4620; C1769; C1894; G0378; J0282; J0610; J1170; J1644; J1650; J1940; J2001; J2250; J2690; J3010; J3430; J3475; J3490; J7060; Q9967

== ENCOUNTER 2021-06-20 22:31 | Emergency (ER) | payer MEDICARE, MEDICAID ==
[~2021-06-20] VITALS: Ht 170.2 cm; Wt 70.0 kg
[~2021-06-20 22:31] MED LIST changes: -ACET-812 PO; -ALOE JUICE PO; +ATOR10TA70 PO; -ATOR40TA PO; -CARV12.5 PO; +CARV6.253 PO; -COU4T PO; -CYANOCOBALAMIN PO; -FURO-150 PO; +FURO40TA4 PO; -IRON PO; -LISI-222 PO; -METHYLSULFONYLMETHANE PO; -POTA-207 PO; +WARF-65 PO; -[UNRECOGNIZED DRUG - OTHER] PO; -[UNRECOGNIZED DRUG - REMARK] PO
--- NOTE | 2021-06-20 22:48 | NUR ---
Pt to CT, pink, alert, no acute/resp distress. Pt mildy repetative.
[2021-06-20 23:28] LABS: BASOPHILS % (AUTO) 0.2 % (0-1); EOSINOPHILS # (AUTO) 0.1 X10'3 (0-0.9); EOSINOPHILS % (AUTO) 1.5 % (0-6); HEMATOCRIT 35.1 % (42.0-52.0); LYMPHOCYTES # (AUTO) 1.4 X10'3 (1.1-4.8); LYMPHOCYTES % (AUTO) 17.4 % (21-51); MEAN CORPUSCULAR HEMOGLOBIN 25.6 PG (27.0-31.0); MEAN CORPUSCULAR HGB CONC 31.3 g/dL (33.0-36.5); MEAN PLATELET VOLUME 8.2 FL (7.4-10.4); MONOCYTES # (AUTO) 0.8 X10'3 (0-0.9); MONOCYTES % (AUTO) 10.3 % (2-12); NEUTROPHILS # (AUTO) 5.6 X10'3 (1.8-7.7); NEUTROPHILS % (AUTO) 70.6 % (42-75); PLATELET COUNT 232 X10'3 (140-440); RED BLOOD COUNT 4.28 X10'6 (4.70-6.10); RED CELL DISTRIBUTION WIDTH 17.3 % (11.5-14.5); WHITE BLOOD COUNT 7.9 X10'3 (4.5-11.0)
[2021-06-20 23:37] LABS: ALANINE AMINOTRANSFERASE 10 U/L (12-78); ALBUMIN 2.9 G/DL (3.4-5.0); ALBUMIN/GLOBULIN RATIO 0.9 (1.1-1.5); ALKALINE PHOSPHATASE 41 IU/L (46-116); ANION GAP 9 (8-16); ASPARTATE AMINO TRANSFERASE 20 U/L (10-37); BILIRUBIN,TOTAL 0.8 MG/DL (0.1-1.0); BLOOD UREA NITROGEN 30 MG/DL (7-18); CALCIUM 8.9 MG/DL (8.5-10.1); CHLORIDE 103 MMOL/L (99-107); CREATININE 1.67 MG/DL (0.60-1.10); GLUCOSE 94 MG/DL (70-104); POTASSIUM 4.2 MMOL/L (3.5-5.1); SODIUM 133 MMOL/L (135-145); TOTAL CARBON DIOXIDE 21.4 MMOL/L (24-32); TOTAL PROTEIN 6.2 G/DL (6.4-8.2); eGFR 40 ML/MIN
[2021-06-20 23:47] LABS: MAGNESIUM 2.2 MG/DL (1.5-2.4)
[2021-06-21 00:17] LABS: MONOTEST NEGATIVE (Neg)
[2021-06-21 01:18] VITALS: BP 117/69
== END 2021-06-21 01:19 | disposition left against medical advice (07) ==
LOC: ER 22:32
DX: S00.01XA Abrasion of scalp, initial encounter (principal); R55 Syncope and collapse; I48.91 Unspecified atrial fibrillation; I11.0 Hypertensive heart disease with heart failure; I50.9 Heart failure, unspecified; E78.00 Pure hypercholesterolemia, unspecified; G89.29 Other chronic pain; F12.90 Cannabis use, unspecified, uncomplicated; Z87.01 Personal history of pneumonia (recurrent); Z95.0 Presence of cardiac pacemaker; Z98.890 Other specified postprocedural states; Z88.8 Allergy status to other drugs, medicaments and biological substances; Z79.899 Other long term (current) drug therapy; W19.XXXA Unspecified fall, initial encounter; Y93.89 Activity, other specified; Y92.89 Other specified places as the place of occurrence of the external cause; Y99.8 Other external cause status
CPT/HCPCS: 36415; 70450; 71045; 72125; 80053; 83735; 83880; 84484; 85025; 85610; 86308; 93005; 99285